=== PATIENT | male | born 1965 | race Asian ===

== ENCOUNTER 2016-09-05 09:22 | Day surgery (SDC) | payer OTHER ==
[2016-09-05] MEDS ORDERED: PROPOFOL 20 ML ONE ×3 (09:49)
[2016-09-05] MEDS ORDERED: LIDOCAINE HCL/PF 1% SDV 5ML VIAL ONE (09:49)
[2016-09-05 10:22] VITALS: TEMP 97.5
[2016-09-05 11:31] VITALS: BP 135/95; PULSE 72
--- NOTE | 2016-09-06 13:44 | PATH ---
Surgical Pathology Report Patient Name: BOB NEVAREZ [facility]. Rec. #: [id number] /Age/Gender: 1965 (Age: 50) / M Account: [id number] Location: [facility]-ENDOSCOPY Taken: 09/05/2016 Received: 09/05/2016 Reported: 09/06/2016 Physicians: Migdalia Juarez M.D. Specimen(s) Received A: BX 2ND PORTION OF DUODENUM & BULB B: BX POLYPS FUNDUS C: BX ANTRAL GASTRITIS D: BX DISTAL & MID ESOPHAGUS Clinical History Acid reflux Gastritis, gastric polyps Final Diagnosis A. DUODENUM, SECOND PORTION AND BULB, BIOPSY: DUODENAL MUCOSA WITH CHRONIC INFLAMMATION AND JEFERSON'S GLANDS HYPERPLASIA. NO HISTOLOGIC EVIDENCE OF GLUTEN SENSITIVE ENTEROPATHY (CELIAC DISEASE). B. STOMACH, FUNDUS, POLYPS, BIOPSY: GASTRIC OXYNTIC MUCOSA WITH FUNDIC GLAND POLYPS, HYPERPLASTIC TYPE POLYP AND MODERATE CHRONIC GASTRITIS. NEGATIVE FOR DYSPLASIA. IMMUNOSTAIN FOR H. PYLORI IS NEGATIVE FOR ORGANISMS. C. STOMACH, ANTRUM GASTRITIS, BIOPSY: GASTRIC ANTRAL MUCOSA WITH MODERATE CHRONIC GASTRITIS AND MILD REACTIVE GASTROPATHY. IMMUNOSTAIN FOR H. PYLORI IS NEGATIVE FOR ORGANISMS. D. ESOPHAGUS, DISTAL AND MID, BIOPSY: SQUAMOUS EPITHELIUM WITH CHRONIC INFLAMMATION AND REFLUX TYPE CHANGES. FRAGMENT OF BLAND APPEARING SMOOTH MUSCLE. NO COLUMNAR EPITHELIUM PRESENT (NO INTESTINAL METAPLASIA/COLE'S ESOPHAGUS IDENTIFIED). NO EVIDENCE OF EOSINOPHILIC ESOPHAGITIS. Electronically Signed Pollo Ferro M.D. Gross Description A. Received in formalin, labeled "biopsy second portion of duodenum and duodenal bulb" are 4 us, irregular portions of soft tissue ranging from 0.1-0.4 cm in greatest dimension. The specimens are submitted in toto in one cassette. B. Received in formalin, labeled "biopsy polyps at fundus" are 3 us, irregular portions of soft tissue ranging from 0.3-0.5 cm in greatest dimension. The specimens are submitted in toto in one cassette. C. Received in formalin, labeled "antral gastritis" are 2 us, irregular portions of soft tissue measuring 0.3 and 0.4 cm in greatest dimension. The specimens are submitted in toto in one cassette. D. Received in formalin, labeled "biopsy distal and mid esophagus" are 4 us, irregular portions of soft tissue ranging from 0.3-0.5 cm in greatest dimension. The specimens are submitted in toto in one cassette. 09/05/201609/05/2016
== END 2016-09-05 11:36 | disposition home or self-care (01) ==
LOC: JASU-ENDO 09:22
PROVIDERS: ATTEND Internal Medicine Gastroenterology
PROC: 0DB98ZX Excision of Duodenum, Via Natural or Artificial Opening Endoscopic, Diagnostic (ICD-10-PCS; 2016-09-05)
PROC: 0DB68ZX Excision of Stomach, Via Natural or Artificial Opening Endoscopic, Diagnostic (ICD-10-PCS; 2016-09-05)
PROC: 0DB38ZX Excision of Lower Esophagus, Via Natural or Artificial Opening Endoscopic, Diagnostic (ICD-10-PCS; 2016-09-05)
PROC: 0DB28ZX Excision of Middle Esophagus, Via Natural or Artificial Opening Endoscopic, Diagnostic (ICD-10-PCS; principal; 2016-09-05 10:00)
DX: K21.9 Gastro-esophageal reflux disease without esophagitis (principal); K31.7 Polyp of stomach and duodenum; K29.70 Gastritis, unspecified, without bleeding
CPT/HCPCS: 88305-TC; 88342-TC